=== PATIENT | male | born 1950 | race Hispanic/Latino ===

== ENCOUNTER → 2019-05-28 | Day surgery (SDC) | payer MEDICARE ==
--- NOTE | 2019-05-27 11:12 | Diagnostic Imaging Report ---
EXAMINATION: CHEST 2 VIEWS INDICATION: Pre-operative COMPARISON: None FINDINGS: LINES/TUBES:None LUNGS:The lungs are well-inflated. No focal consolidation or pulmonary edema. PLEURA:No pleural effusion or pneumothorax. MEDIASTINUM:The cardiomediastinal silhouette appears normal in size and shape. BONES/SOFT TISSUES:No acute osseous injury. ABDOMEN:No free air under the diaphragm. IMPRESSION: No focal pneumonia or pulmonary edema. Signed by: Dany Ruiz MD on 05/27/2019 11:10 AM
[~2019-05-28] MED LIST: BACITRACIN 50,000 UNIT VIAL ONE; BUPIVACAINE HCL 0.5% INJ 30 ML VIAL INJ ONE; EPHEDRINE SULFATE INJ 50 MG/ML VIAL ONE; FENTANYL CITRATE/PF 100MCG/2 ML INJ ONE; LIDOCAINE HCL 2% LOCAL INJ 5 ML SDV VIAL INJ ONE; METFORMIN HCL500 MG PO; NEOSTIGMINE 1 MG/ML 10ML VIAL ONE; ONDANSETRON HCL INJ 2MG/ML 2ML 2 MG/ML VIAL ONE; PROPOFOL IV EMULSION 10 MG/ML 20 ML VIAL ONE; SEVOFLURANE INHAL SOLN 250 ML PEN BTL ONE
--- OUTSIDE RECORDS SUMMARY | 2019-05-28 07:32 | XMS REPORT | Encounter Summary ---
Author Organization Unknown Address [address] [place] [address] Phone [phone] Care Team Providers Care Human Resources Partner Name Role Phone Dr. Marcial Live 3 [phone] Marcial Live Jr, MD 3 [phone] Reason for Visit fatigue; Bilateral joint problem(s); hyperlipidemia; Left low back pain; Annual Alcohol Misuse Screening; Advance Care Plan; diabetes Instructions 1. Type 2 diabetes mellitus metformin ER 500 mg tablet,extended release 24 hr Tresiba FlexTouch U-100 insulin 100 unit/mL (3 mL) subcutaneous pen glucose, fingerstick, blood 2. Mixed hyperlipidemia atorvastatin 10 mg tablet 3. HMG COA reductase inhibitor adverse reaction 4. Malaise and fatigue testosterone, total, serum 5. Osteoarthritis of hip XR, hip, bilateral, 2 view 6. Alcohol consumption screening learning about alcohol misuse 7. Advance directive discussed with patient advance care planning: care instructions Discussion Note: None recorded. Plan of Care Patient Instructions Patient Instructions on Filing Advance Directives Be sure that you have easy access to your paperwork for your medical power of user support analyst and advanced directives. Be sure that the designated person as well as important family members have copies of those forms as well. Please have contact information of your designee readily available. In the event of hospitalization, please bring those important documents with you for reference. Reminders Provider Appointments Est Patient 12/12/2018 1:30PM Marcial Live Jr, MD Lab Glucose, Fingerstick, Blood 09/12/2018 [facility] ([facility] [place] Testosterone, Total, Serum 09/12/2018 [facility] Laboratory Referral None recorded. Procedures None recorded. Surgeries None recorded. Imaging XR, Hip, Bilateral, 2 View 09/12/2018 [facility] Medications Name Start Date atorvastatin 10 mg tablet Take 0.5 tablets every day by oral route for 90 days. BD Ultra-Fine Jayashree Pen Needle 32 gauge x 5/32" cyclobenzaprine 10 mg tablet Take 1 tablet 3 times a day by oral route as needed for 10 days. Ecotrin Low Strength 81 mg tablet,enteric coated Take 1 tablet every day by oral route for 90 days. hydrocortisone 2.5 % topical cream with perineal applicator APPLY A THIN LAYER TO THE AFFECTED AREA(S) BY TOPICAL ROUTE 2-4 TIMESDAILY metformin ER 500 mg tablet,extended release 24 hr Take 1 tablet every day by oral route. OneTouch Verio strips Take 1 strip twice a day by miscell. route. tamsulosin 0.4 mg capsule Take 1 capsule every day by oral route for 90 days. Tresiba FlexTouch U-100 insulin 100 unit/mL (3 mL) subcutaneous pen Inject 30 units every day by subcutaneous route for 90 days. Medications Administered None recorded. Vitals Height Weight BMI Blood Pressure 5 ft 9 in 222 lbs 32.8 kg/m2 Lab Results Date Name Specimen Result Interpretation Description Value Range Status Address Glucose, Fingerstick, Blood Blood Glucose: mg/dl 99 [facility] ([facility]) [facility]obby: [address] [facility] [address] Allergies Code Code System Name Reaction Severity Status Onset NKDA Problems Name Status Onset Date Source Urge Incontinence of Urine Active 06/30/2015 Lower Urinary Tract Symptoms Due to Benign Prostatic Hypertrophy Active 06/30/2015 Carpal Tunnel Syndrome Active 10/23/2017 Type 2 Diabetes Mellitus Active 10/25/2017 Mixed Hyperlipidemia Active 10/26/2017 Procedures Date Name Performed by 03/20/2015 Carpal Tunnel Surgery Information not available Colonoscopy & Polypectomy Information not available 09/12/2018 XR, Hip, Bilateral, 2 View [facility] [address] [place] [address] (Work Place) Vaccine List Vaccine Type influenza, high dose seasonal 01/04/20180.5 mL influenza, injectable, quadrivalent 06/30/2015 03/30/20160.5 mL Social History Smoking Status Former Smoker (1 PPW) Past Encounters 09/12/2018 Type 2 Diabetes Mellitus; Mixed Hyperlipidemia; HMG COA Reductase Inhibitor Adverse Reaction; Malaise and Fatigue; Osteoarthritis of Hip; Alcohol Consumption Screening; Advance Directive Discussed with Patient Marcial Live Jr, MD: [address] [facility], [place] [address], Ph. History of Present Illness Diabetes F/U Reported By: Patient HPI: Labs: last A1C result: 7.1. Context: no side effects from medications. Associated Symptoms: no dizziness, no sweats, no headaches, no confusion, no increased thirst, no increased appetite, no increased urination, no blurred vision, no numbness of feet Notes: Endorses medication compliance.
Hypertension Reported By: Patient HPI: Severity: mild. Onset/Timing: gradual onset. Alleviating Factors: relieved with rest, medication. Self Care: not under emotional stress, blood pressure goal: 130/80. Associated Symptoms: no shortness of breath, no fatigue, no decline in exercise capacity Hyperlipidemia Reported By: Patient HPI: Type of hyperlipidemia: combined, hypercholesterolemia, hypertriglyceridemia. Duration: chronic. Current Therapy: currently taking: atprvastatin, last LDL level: 72 date: 72, last triglyceride level: 123 date: 123. Complications: no coronary artery disease. Risk Factors: diabetes, hypertension, low HDL level, high lipoprotein(a) level Musculoskeletal Pain Reported By: Patient HPI: Location: pain is not radiating, bilateral hip. Quality: dull. Severity: worsening. Duration: present <1 month. Timing: constant. Alleviating factors: rest. Aggravating factors: movement/positioning. Associated Symptoms: no fever, no weak limbs, no tingling, no numbness of the legs/feet Note:I'd like to talk about what is ahead with your illness and do some thinking in advance about what is important to you so I can make sure we provide you with the care you want-is that okay? {{Yes*|No}}

Patient presents for routine medication refill . Currently without new complaint. Review of Systems Comprehensive General Adult ROS, Comprehensive Adult Problem ROS, Diabetes F/U ROS Reported By: Patient Constitutional: Constitutional: no fever, no significant weight gain, no significant weight loss, no exercise intolerance Eyes: Eyes: no vision change Cardiovascular: Cardiovascular: no chest pain, no shortness of breath when walking, no palpitations, no lightheadedness, no SOB Respiratory: Respiratory: no cough, no wheezing, no shortness of breath Gastrointestinal: Gastrointestinal: no abdominal pain, no nausea, no vomiting, no constipation, normal appetite, no diarrhea Genitourinary: Genitourinary: no difficulty urinating, no increased frequency Musculoskeletal: Musculoskeletal: no muscle weakness, no arthralgias/joint pain, no soft tissue swelling, no joint swelling, muscle aches, myalgia Integumentary: Skin: no rashes, no laceration, no redness, no skin lesions, no swelling Neurologic: Neurologic: no weakness, no numbness, no dizziness. Neuro: no tingling Endocrine: Endocrine: no fatigue Hematologic/Lymphatic: Hematologic/Lymphatic no bruising Constitutional: Constitutional: no significant weight change. Extremities: no ulcers Physical Exam Musculoskeletal and Joint Exam, Cardiology Exam, Diabetes, Diabetic Foot Exam, Low Back Pain Reported By: Patient Musculoskeletal System: Musculoskeletal System normal range of motion in all peripheral joints. Right Hip: trochanteric bursa pain, tenderness, pain on palpation. Left Hip: trochanteric bursa pain, tenderness, pain on palpation Constitutional: General Appearance: well-nourished, well-developed, appears stated age. Level of Distress: comfortable Lungs: Respiratory Effort: unlabored. Chest Exam: no chest wall tenderness. Auscultation: clear, no wheezing, no rales, no rhonchi Cardiovascular: Rate And Rhythm: regular. Heart Sounds: normal S1, physiologically split S2, no rub, no gallop, no click. Systolic Murmur: not heard. Diastolic Murmur: not heard. Extremities: no cyanosis, no edema, no peripheral signs of emboli Peripheral Pulses: Pulses: full and equal in all extremities except if noted Skin: Inspection and Palpation: warm and dry
--- OUTSIDE RECORDS SUMMARY | 2019-05-28 07:32 | XMS REPORT | Encounter Summary ---
Author Organization Unknown Address [address] [place] [address] Phone [phone] Care Team Providers Care Crepe Sole Scourer Name Role Phone Dr. Marcial Live 3 [phone] Marcial Live Jr, MD 3 [phone] Reason for Visit hyperlipidemia; Left foot problem; diabetes Instructions 1. Puncture wound of foot ceftriaxone 1 gram solution for injection Augmentin 875 mg-125 mg tablet 2. Type 2 diabetes mellitus glucose, fingerstick, blood 3. Mixed hyperlipidemia 4. Vaccine refused by patient Discussion Note: None recorded. Patient educational handouts: No information available. Plan of Care Reminders Provider Appointments Est Patient 02/20/2019 2:15PM Marcial Live Jr, MD Lab Glucose, Fingerstick, Blood 01/10/2019 [facility] Referral None recorded. Procedures None recorded. Surgeries None recorded. Imaging None recorded. Medications Name Start Date atorvastatin 10 mg tablet Take 1 tablet every day by oral route for 90 days. Augmentin 875 mg-125 mg tablet Take 1 tablet every 12 hours by oral route with meals for 7 days. BD Ultra-Fine Jayashree Pen Needle 32 gauge x 5/32" diclofenac sodium 75 mg tablet,delayed release Take 1 tablet twice a day by oral route for 15 days. Ecotrin Low Strength 81 mg tablet,enteric coated Take 1 tablet every day by oral route for 90 days. fenofibrate 160 mg tablet Take 1 tablet every day by oral route. metformin ER 500 mg tablet,extended release 24 hr Take 1 tablet every day by oral route. OneTouch Verio strips Take 1 strip twice a day by miscell. route. sildenafil (antihypertensive) 20 mg tablet Take po: 3 to 5 tablets one hour prior to sexual activity; maximun 5 tablets per 24 hours tamsulosin 0.4 mg capsule Take 1 capsule every day by oral route for 90 days. Tresiba FlexTouch U-100 insulin 100 unit/mL (3 mL) subcutaneous pen Inject 30 units every day by subcutaneous route for 90 days. Medications Administered None recorded. Vitals Height Weight BMI Blood Pressure 5 ft 9 in 222.6 lbs 32.9 kg/m2 126/84 mm[Hg] Results Lab Results Date Name Specimen Result Interpretation Description Value Range Status Address 01/01/2019 Glucose, Fingerstick, Blood Blood Glucose: mg/dl 135 [facility]: [address] [address], [place] 12/27/2018 Culture, Aerobic + Anaerobic Culture, Anaerobic Bacteria W/gram Stain [facility]: [address] [address], [place] Culture, Aerobic Bacteria see note [facility]: [address] [facility] [address], [place] 12/24/2018 Glucose, Fingerstick, Blood Blood Glucose: mg/dl 90 [facility]: [address] Glucose, Fingerstick, Blood Blood Glucose: mg/dl 108 [facility]: [address] Allergies Code Code System Name Reaction Severity Status Onset NKDA Problems Name Status Onset Date Source Urge Incontinence of Urine Active 06/30/2015 Lower Urinary Tract Symptoms Due to Benign Prostatic Hypertrophy Active 06/30/2015 Carpal Tunnel Syndrome Active 10/23/2017 Type 2 Diabetes Mellitus Active 10/25/2017 Mixed Hyperlipidemia Active 10/26/2017 Diabetic on Insulin Active 11/21/2018 Procedures Date Name Performed by 03/20/2015 Carpal Tunnel Surgery Information not available 12/27/2018 CT, Head, W/o Contrast [facility] [address] [place] [address] (Work [address]) 01/01/2019 XR, Foot, 2 View [facility] [address] [place] [address] (Work Place) Vaccine List Vaccine Type influenza, high dose seasonal 01/04/20180.5 mL 11/21/20180.5 mL influenza, injectable, quadrivalent 06/30/2015 03/30/20160.5 mL Tdap 11/21/20180.5 mL Social History Tobacco Smoking Status Former Smoker (1 PPW) Past Encounters 01/10/2019 Puncture Wound of Foot; Type 2 Diabetes Mellitus; Mixed Hyperlipidemia; Vaccine Refused by Patient Marcial Live Jr, MD: [address] [address], Ph. 01/01/2019 Type 2 Diabetes Mellitus; Puncture Wound of Foot Marcial Live Jr, MD: [address], [place] [address], Ph. 12/27/2018 Type 2 Diabetes Mellitus; Mixed Hyperlipidemia; Puncture Wound of Foot; Headache Marcial Live Jr, MD: [address], [place] [address], Ph. 12/24/2018 Type 2 Diabetes Mellitus; Mixed Hyperlipidemia; Puncture Wound of Foot; Osteoarthritis of Hip Marcial Live Jr, MD: [address], [place] [address], Ph. History of Present Illness Hypertension Reported By: Patient HPI: Severity: mild. Onset/Timing: gradual onset. Alleviating Factors: relieved with rest, medication. Self Care: not under emotional stress, blood pressure goal: 130/80. Associated Symptoms: no shortness of breath, no fatigue, no decline in exercise capacity Diabetes F/U Reported By: Patient HPI: Labs: last A1C result: 7.5. Context: no side effects from medications. Associated Symptoms: no dizziness, no sweats, no headaches, no confusion, no increased thirst, no increased appetite, no increased urination, no blurred vision, no numbness of feet Notes: Endorses medication compliance. Hyperlipidemia Reported By: Patient HPI: Type of hyperlipidemia: combined, hypercholesterolemia, hypertriglyceridemia. Duration: chronic. Current Therapy: currently taking:atorvastatin, last LDL level: not calculated date: not calculated, last triglyceride level: 463 date: 463. Complications: no coronary artery disease Review of Systems Comprehensive General Adult ROS, Diabetes F/U ROS Reported By: Patient Constitutional: Constitutional: no significant weight gain, no significant weight loss Cardiovascular: Cardiovascular: no chest pain, no shortness of breath when walking Respiratory: Respiratory: no cough, no wheezing, no shortness of breath Integumentary: Skin: no rashes, laceration Endocrine: Endocrine: no fatigue Physical Exam Musculoskeletal and Joint Exam, Neurology Exam, Cardiology Exam, Diabetes, Diabetic Foot Exam Reported By: Patient Musculoskeletal System: Musculoskeletal System normal range of motion in all peripheral joints. Left Foot: pain on palpation Constitutional: Weight: well-nourished. Ambulation: ambulates independently Head: Size/Trauma: normocephalic Mental Status: Orientation oriented to person, oriented to place, oriented to time. Mood/Affect: appropriate mood, appropriate affect. Language: has spontaneous speech. Memory: recent memory intact, remote memory intact. Fund of Knowledge: current events, past history Foot Exam:: Right Foot: right foot toes were examined. Left Foot: left foot toes were examined
--- OUTSIDE RECORDS SUMMARY | 2019-05-28 07:32 | XMS REPORT | Encounter Summary ---
Author Organization Unknown Address [address] [place] [address] Phone [phone] Care Team Providers Care Pediatric Licensed Practical Nurse Name Role Phone Dr. Marcial Live 3 [phone] Marcial Live Jr, MD 3 [phone] Reason for Visit Left foot problem; headaches Instructions 1. Type 2 diabetes mellitus glucose, fingerstick, blood 2. Mixed hyperlipidemia 3. Puncture wound of foot culture, aerobic + anaerobic 4. Headache CT, head, w/o contrast - *Please call the patient and schedule* Discussion Note: None recorded. Patient educational handouts: No information available. Plan of Care Reminders Provider Appointments Est Patient 01/01/2019 10:00AM Marcial Live Jr, MD Est Patient 02/20/2019 2:15PM Marcial Live Jr, MD Lab Glucose, Fingerstick, Blood 12/27/2018 [facility] Culture, Aerobic + Anaerobic 12/27/2018 [facility] Laboratory Referral None recorded. Procedures None recorded. Surgeries None recorded. Imaging CT, Head, W/o Contrast 12/27/2018 [facility]iology Medications Name Start Date amoxicillin 875 mg-potassium clavulanate 125 mg tablet Take 1 tablet every 12 hours by oral route for 7 days. atorvastatin 10 mg tablet Take 1 tablet [...] ft 9 in 222 lbs 32.8 kg/m2 128/80 mm[Hg] Results Lab Results Date Name Specimen Result Interpretation Description Value Range Status Address 12/24/2018 Glucose, Fingerstick, Blood Blood Glucose: mg/dl 90 [facility]: [address] Glucose, Fingerstick, Blood Blood Glucose: mg/dl 108 [facility]: [address] Allergies Code Code System Name Reaction [...] not available 12/27/2018 CT, Head, W/o Contrast [facility] [address] [place] [address] (Work [address]) Vaccine List Vaccine Type influenza, high dose seasonal 01/04/20180.5 mL 11/21/20180.5 mL influenza, injectable, quadrivalent 06/30/2015 03/30/20160.5 mL Tdap 11/21/20180.5 mL Social History Tobacco Smoking Status Former Smoker (1 PPW) Past Encounters 12/27/2018 Type 2 Diabetes Mellitus; Mixed Hyperlipidemia; Puncture Wound of Foot; Headache Marcial Live Jr, MD: [address] [address], [place]. 12/24/2018 Type 2 Diabetes Mellitus; Mixed Hyperlipidemia; Puncture Wound of Foot; Osteoarthritis of Hip Marcial Live Jr, MD: [address] [address], Ph. History of Present Illness Hypertension Reported [...] hypertriglyceridemia. Duration: chronic. Current Therapy: currently taking: atorvastatin,fenofibrate. Complications: no coronary artery disease Note:{{Yes|No}} Review of Systems Comprehensive General Adult ROS, [...]
--- OUTSIDE RECORDS SUMMARY | 2019-05-28 07:32 | XMS REPORT | Encounter Summary ---
Author Organization Unknown Address [address] [place] [address] Phone [phone] Care Team Providers Care Linen Checker Name Role Phone Dr. Marcial Live 3 [phone] Marcial Live Jr, MD 3 [phone] Reason for Visit hyperlipidemia; diabetes Instructions 1. Type 2 diabetes mellitus glucose, fingerstick, blood HbA1c (hemoglobin A1c), blood microalbumin:creatinine ratio, urine metformin ER 500 mg tablet,extended release 24 hr OneTouch Verio strips Tresiba FlexTouch U-100 insulin 100 unit/mL (3 mL) subcutaneous pen 2. Mixed hyperlipidemia atorvastatin 10 mg tablet 3. Hypercalcemia CMP, serum or plasma 4. Influenza vaccination declined 5. Screening for cardiovascular system disease 6. Lower urinary tract symptoms due to benign prostatic hypertrophy tamsulosin 0.4 mg capsule Discussion Note: None recorded. Patient educational handouts: No information available. Plan of Care Reminders Provider Appointments Return to Office on or around 09/13/2018 Marcial Live Jr, MD Lab Glucose, Fingerstick, Blood 06/13/2018 [facility] ([facility] HbA1C (Hemoglobin a1C), Blood 06/13/2018 [facility] Laboratory Microalbumin:creatinine Ratio, Urine 06/13/2018 [facility] CMP, Serum or Plasma 06/13/2018 [facility] Referral None recorded. Procedures None [...] BMI Blood Pressure 5 ft 9 in 216 lbs 31.9 kg/m2 130/80 mm[Hg] Lab Results None recorded. Allergies Code Code System Name Reaction Severity Status Onset NKDA Problems Name Status Onset Date Source Urge Incontinence of Urine Active 06/30/2015 Lower Urinary Tract Symptoms Due to Benign Prostatic Hypertrophy Active 06/30/2015 Carpal Tunnel Syndrome Active 10/23/2017 Type 2 Diabetes Mellitus Active 10/25/2017 Mixed Hyperlipidemia Active 10/26/2017 Procedures Date Name Performed by 03/20/2017 Colonoscopy & Polypectomy Information not available 03/20/2015 Carpal Tunnel Surgery Information not available Vaccine List Vaccine Type influenza, high dose seasonal 01/04/20180.5 mL influenza, injectable, quadrivalent 06/30/2015 03/30/20160.5 mL Social History Smoking Status Former Smoker (1 PPW) Past Encounters 06/13/2018 Type 2 Diabetes Mellitus; Mixed Hyperlipidemia; Hypercalcemia; Influenza Vaccination Declined; Screening for Cardiovascular System Disease; Lower Urinary Tract Symptoms Due to Benign Prostatic Hypertrophy Marcial Live Jr, MD: [address] [facility], [address], [place] [address], Ph. History of Present Illness Hypertension Reported By: Patient HPI: Severity: mild. Onset/Timing: gradual onset. Alleviating Factors: relieved with rest, medication. Self Care: not under emotional stress, blood pressure goal: 130/80. Associated Symptoms: no shortness of breath, no fatigue, no decline in exercise capacity Diabetes F/U Reported By: Patient HPI: Labs: last A1C result: 7.6. Context: no side effects from medications. Associated Symptoms: no dizziness, no sweats, no headaches, no confusion, no increased thirst, no increased appetite, no increased urination, no blurred vision, no numbness of feet Notes: Endorses medication compliance.

Endorses medication compliance, appropriate diabetic diet.
Hyperlipidemia Reported By: Patient HPI: Type of hyperlipidemia: combined, hypercholesterolemia, hypertriglyceridemia. Duration: chronic. Current Therapy: currently taking: atprvastatin, last LDL level: 72 date: 72, last triglyceride level: 123 date: 123. Complications: no coronary artery disease. Risk Factors: diabetes, hypertension, low HDL level, high lipoprotein(a) level Note:Patient presents for routine medication refill . Currently without new complaint. Review of Systems Comprehensive General Adult ROS, Diabetes F/U ROS Reported By: Patient Constitutional: Constitutional: no significant weight gain, no significant weight loss Cardiovascular: Cardiovascular: no chest pain, no shortness of breath when walking Respiratory: Respiratory: no cough, no wheezing, no shortness of breath Genitourinary: Genitourinary: increased urinary frequency, incomplete emptying Endocrine: Endocrine: no fatigue Physical Exam Cardiology Exam, Diabetes, Diabetic Foot Exam Reported By: Patient Constitutional: General Appearance: well-nourished, well-developed, appears stated age. Level of Distress: comfortable Psychiatric: Mental Status: alert, normal affect, normal mood, no diffuse anxiety, no paranoid ideations. Orientation: oriented to time, place, and person, to time, to place, to person. Insight: good judgment, good insight. Memory: recent memory normal, remote memory normal Lungs: Respiratory Effort: unlabored. Chest Exam: no [...]
--- OUTSIDE RECORDS SUMMARY | 2019-05-28 07:32 | XMS REPORT | Encounter Summary ---
Author Organization Unknown Address [address] [place] [address] Phone [phone] Care Team Providers Care Sales Recruiter Name Role Phone Dr. Marcial Live 3 [phone] Marcial Live Jr, MD 3 [phone] Reason for Visit Advance Care Plan; AWV Annual Wellness Visit Male (VFP); puncture wound Instructions 1. Adult health examination 2. Advance directive discussed with patient advance care planning: care instructions 3. Depression screening 4. Screening for malignant neoplasm of colon fecal occult blood, stool 5. Screening for malignant neoplasm of prostate PSA, serum or plasma 6. Alcohol consumption screening learning about alcohol misuse 7. Penetrating wound 8. Type 2 diabetes mellitus glucose, fingerstick, blood HbA1c (hemoglobin A1c), blood microalbumin/creatinine, ratio, urine OneTouch Verio strips 9. Diabetic on insulin 10. Mixed hyperlipidemia lipid panel, serum CMP, serum or plasma 11. Obesity learning about healthy weight 12. Malaise and fatigue CBC w/ auto diff TSH, serum or plasma urinalysis, dipstick testosterone, total, serum 13. Lower urinary tract symptoms due to benign prostatic hypertrophy tamsulosin 0.4 mg capsule 14. Primary erectile dysfunction sildenafil (antihypertensive) 20 mg tablet 15. Immunization refused 16. Influenza vaccination Fluzone High-Dose 2019-20 (PF) 180 mcg/0.5 mL intramuscular syringe 17. Immunization Adacel (Tdap Adolesn/Adult)(PF)2 Lf-(2.5-5-3-5)-5 Lf/0.5 mL IM syringe Discussion Note: None recorded. Plan of Care Patient Instructions It was good to see you in the office today for your Medicare Annual Wellness Visit. You have been provided some information on healthy nutrition, including a diet rich in fruits and vegetables, minimizing simple carbohydrates, salt, and saturated fats. I want to encourage regular cardiovascular exercise such as walking at least 30 minutes daily, 5 times per week. Please remember to schedule any preventive health measures that we talked about today. You have also been provided education on fall prevention and community- based lifestyle interventions to help reduce health risks and promote healthy living in your Annual Wellness folder. Screening Recommendations 1. Vaccines Pneumonia: Recommended today Influenza: This Fall 2. Colorectal Cancer Screening: No further screening necessary at this time 3. Annual Prostate Screening 4. Annual Depression Screening 5. Annual Alcohol Screening 6. Annual Fall Risk Screening 7. Annual Health Risk Assessment Patient Instructions on Filing Advance Directives Be sure that you have easy access to your paperwork for your medical power of collections attorney and advanced directives. Be sure that the designated person as well as important family members have copies of those forms as well. Please have contact information of your designee readily available. In the event of hospitalization, please bring those important documents with you for reference. Reminders Provider Appointments Est Patient 12/12/2018 1:30PM Marcial Live Jr, MD Lab Glucose, Fingerstick, Blood 11/21/2018 [facility]) Hob HbA1C (Hemoglobin a1C), Blood 11/21/2018 [facility] Microalbumin/creatinine, Ratio, Urine 11/21/2018 [facility] Lipid Panel, Serum 11/21/2018 [facility] CMP, Serum or Plasma 11/21/2018 [facility] CBC W/ Auto Diff 11/21/2018 [facility] TSH, Serum or Plasma 11/21/2018 [facility] Urinalysis, Dipstick 11/21/2018 [facility] Fecal Occult Blood, Stool 11/21/2018 [facility] PSA, Serum or Plasma 11/21/2018 [facility] Testosterone, Total, Serum 11/21/2018 [facility] Referral None recorded. Procedures None recorded. Surgeries None recorded. Imaging None recorded. Medications Name Start Date atorvastatin 10 mg tablet Take 0.5 tablets every day by oral route for 90 days. BD Ultra-Fine Jayashree Pen Needle 32 gauge x 5/32" Ecotrin Low Strength 81 mg tablet,enteric coated Take 1 tablet every day by oral route for 90 days. metformin ER 500 mg tablet,extended release 24 [...] BMI Blood Pressure 5 ft 9 in 225 lbs 33.2 kg/m2 126/78 mm[Hg] Lab Results None recorded. Allergies Code [...] Status Former Smoker (1 PPW) Past Encounters 11/21/2018 Adult Health Examination; Advance Directive Discussed with Patient; Depression Screening; Screening for Malignant Neoplasm of Colon; Screening for Malignant Neoplasm of Prostate; Alcohol Consumption Screening; Penetrating Wound; Type 2 Diabetes Mellitus; Diabetic on Insulin; Mixed Hyperlipidemia; Obesity; Malaise and Fatigue; Lower Urinary Tract Symptoms Due to Benign Prostatic Hypertrophy; Primary Erectile Dysfunction; Immunization Refused; Influenza Vaccination; Immunization Marcial Live Jr, MD: [address] [facility], [address], [place] [address], Ph. History of Present Illness Mini Cog Reported By: Patient Functional Ability: Personal/Social/ Draw a clock and write in the numbers in the correct place, and set the time to 10 minutes after 11 o'clock was completed correctly? Yes, 3 word recall: Your nurse or doctor will ask you to remember 3 words. In 5 minutes, they will ask you to repeat them. Patient recalled 3 words Opioid Use Assessment Reported By: Patient Opioid Use Assessment:: Current Use of Opioids : no use of opioids (no further questions required) Note:I'd like to talk about what is ahead with your illness and do some thinking in advance about what is important to you so I can make sure we provide you with the care you want-is that okay? {{Yes*|No}} Review of Systems Comprehensive General Adult ROS Reported By: Patient Constitutional: Constitutional: no significant weight gain, no significant weight loss Cardiovascular: Cardiovascular: no chest pain, no shortness of breath when walking Respiratory: Respiratory: no cough, no wheezing, no shortness of breath Integumentary: Skin: no rashes, laceration Endocrine: Endocrine: no fatigue Physical Exam Neurology Exam Reported By: Patient Constitutional: Weight: well-nourished. Ambulation: ambulates independently Head: Size/Trauma: normocephalic Mental Status: Orientation oriented to person, oriented to place, oriented to time. Mood/Affect: appropriate mood, appropriate affect. Language: has spontaneous speech. Memory: recent memory intact, remote memory intact. Fund of Knowledge: current events, past history
--- OUTSIDE RECORDS SUMMARY | 2019-05-28 07:32 | XMS REPORT ---
Author Author [facility] Address Unknown Phone Unavailable Care Team Providers Care Custodial Supervisor Name Role Phone NIXON CHAVZE Unavailable Unavailable Problems This patient has no known problems. Allergies, Adverse Reactions, Alerts This patient has no known allergies or adverse reactions. Medications This patient has no known medications. Encounters Start Date/Time End Date/Time Encounter Type Admission Type Attending Clinicians Care Facility Care Department Encounter ID 2019-05-07 14:23:29 Outpatient [id number] 2019-01-23 14:00:00 2019-01-23 14:00:00 Outpatient [id number] Results Test Description Test Time Test Comments Text Results Atomic Results Result Comments CHEST 2 VIEWS 2019-05-27 11:09:00 [place] [address] Patient Name: KIMBERLY FLEMING JR MR #: [id number] : 1950 Age/Sex: 68/M Req #: [id number] Adm Physician: Ordered by: NIXON CHAVEZ DP Report #: [id number] Location: OR Room/Bed: Procedure: [id number] DX/CHEST 2 VIEWS Exam Date: Exam Time: REPORT STATUS: Signed EXAMINATION: CHEST 2 VIEWS INDICATION: Pre-operative COMPARISON: None FINDINGS: LINES/TUBES:None LUNGS:The lungs are well- inflated. No focal consolidation or pulmonary edema. PLEURA:No pleural effusion or pneumothorax. MEDIASTINUM:The cardiomediastinal silhouette appears normal in size and shape. BONES/SOFT TISSUES:No acute osseous injury. ABDOMEN:No free air under the diaphragm. IMPRESSION: No focal pneumonia or pulmonary edema. Signed by: Nga Ruiz MD on 05/27/2019 11:10 AM Dictated By: NGA RUIZ MD 1110 Transcribed By: AISHA on 05/27/19 1110 COPY TO: NIXON CHAVEZ DPM
--- OUTSIDE RECORDS SUMMARY | 2019-05-28 07:32 | XMS REPORT | Encounter Summary ---
Author Organization Unknown Address [address] [place] [address] Phone [phone] Care Team Providers Care Social Media Campaign Manager Name Role Phone Dr. Marcial Live 3 [phone] Marcial Live Jr, MD 3 [phone] Reason for Visit hyperlipidemia; other - see typed reason; diabetes Instructions 1. Type 2 diabetes mellitus glucose, fingerstick, blood 2. Mixed hyperlipidemia 3. Puncture wound of foot Augmentin 875 mg-125 mg tablet 4. Osteoarthritis of hip diclofenac sodium 75 mg tablet,delayed release Discussion Note: None recorded. Patient educational handouts: No information available. Plan of Care Reminders Provider Appointments Return to Office on or around 12/28/2018 Marcial Live Jr, MD Est Patient 02/20/2019 2:15PM Marcial Live Jr, MD Lab Glucose, Fingerstick, Blood 12/24/2018 [facility] Referral None recorded. Procedures None recorded. Surgeries None recorded. Imaging None recorded. Medications Name Start Date atorvastatin 10 mg tablet Take 1 tablet every day by oral route for 90 days. Augmentin 875 mg-125 mg tablet Take 1 tablet every 12 hours by oral route for 7 days. BD Ultra-Fine Jayashree Pen [...] BMI Blood Pressure 5 ft 9 in 224.6 lbs 33.2 kg/m2 124/76 mm[Hg] Results Lab Results None recorded. Allergies Code Code [...] Status Former Smoker (1 PPW) Past Encounters 12/24/2018 Type 2 Diabetes Mellitus; Mixed Hyperlipidemia; Puncture Wound of Foot; Osteoarthritis of Hip Marcial Live Jr, MD: [address] [facility], [address], [place] [address], Ph. History of Present Illness Hypertension Reported [...] taking: atorvastatin,fenofibrate. Complications: no coronary artery disease Opioid Use Assessment Reported By: Patient Opioid Use Assessment:: Current Use of Opioids : no use of opioids (no further questions required) Note:{{Yes|No}} Review of Systems Comprehensive General Adult [...] motion in all peripheral joints. Right Hip: tenderness, pain on palpation. Left Hip: tenderness, pain on palpation. Right Foot: pain on palpation. Left Foot: pain on palpation Constitutional: Weight: [...]
--- OUTSIDE RECORDS SUMMARY | 2019-05-28 07:32 | XMS REPORT | Encounter Summary ---
Author Organization Unknown Address [address] [place] [address] Phone [phone] Care Team Providers Care Regional Vice President Life Sales Name Role Phone Dr. Marcial Live 3 [phone] Marcial Live Jr, MD 3 [phone] Reason for Visit hyperlipidemia; Left foot problem; diabetes Instructions 1. Type 2 diabetes mellitus metformin ER 500 mg tablet,extended release 24 hr glucose, fingerstick, blood 2. Puncture wound of foot XR, foot, 2 view Bactrim DS 800 mg-160 mg tablet Discussion Note: None recorded. Patient educational handouts: No information available. Plan of Care Reminders Provider Appointments Est Patient 02/20/2019 2:15PM Marcial Live Jr, MD Lab Glucose, Fingerstick, Blood 01/01/2019 [facility] Referral None recorded. Procedures None recorded. Surgeries None recorded. Imaging XR, Foot, 2 View 01/01/2019 [facility] Radiology Medications Name Start Date atorvastatin 10 mg tablet Take 1 tablet every day by oral route for 90 days. Bactrim DS 800 mg-160 mg tablet Take 1 tablet every 12 [...] BMI Blood Pressure 5 ft 9 in 223.6 lbs 33 kg/m2 124/80 mm[Hg] Results Lab Results Date Name Specimen Result Interpretation Description Value Range Status Address 12/24/2018 Glucose, Fingerstick, Blood Blood Glucose: mg/dl 90 [facility]: [address] Glucose, Fingerstick, Blood Blood Glucose: mg/dl 108 [facility]: [address] Allergies Code Code System Name Reaction [...] not available 12/27/2018 CT, Head, W/o Contrast [facility] [address] [place], [place] [id number] (Work Place) 01/01/2019 XR, Foot, 2 View [facility] [address] [place], [place] [id number] (Work Place) Vaccine List Vaccine Type influenza, high dose seasonal 01/04/20180.5 mL 11/21/20180.5 mL influenza, injectable, quadrivalent 06/30/2015 03/30/20160.5 mL Tdap 11/21/20180.5 mL Social History Tobacco Smoking Status Former Smoker (1 PPW) Past Encounters 01/01/2019 Type 2 Diabetes Mellitus; Puncture Wound of Foot Marcial Live Jr, MD: [address] [address], Ph. 12/27/2018 Type 2 Diabetes Mellitus; Mixed Hyperlipidemia; Puncture Wound of Foot; Headache Marcial Live Jr, MD: [address] [address], Ph. 12/24/2018 Type 2 Diabetes Mellitus; Mixed Hyperlipidemia; Puncture Wound of Foot; Osteoarthritis of Hip Marcial Live Jr, MD: [address] [facility], [address], [place] [address], Ph. History of Present Illness Hypertension Reported By: Patient HPI: Severity: mild. Onset/Timing: gradual onset. Alleviating Factors: relieved with rest, medication. Self Care: not under emotional stress, blood pressure goal: 130/80. Associated Symptoms: no shortness of breath, no fatigue, no decline in exercise capacity Diabetes F/U Reported By: Patient HPI: Labs: last A1C result: . Context: no side effects from medications. Associated Symptoms: no dizziness, no sweats, no headaches, no confusion, no increased thirst, no increased appetite, no increased urination, no blurred vision, no numbness of feet Notes: Endorses medication compliance. Hyperlipidemia Reported By: Patient HPI: Type of hyperlipidemia: combined, hypercholesterolemia. Duration: chronic. Current Therapy: currently taking:. Complications: no coronary artery disease Review of [...] Musculoskeletal: Musculoskeletal: no muscle weakness, no arthralgias/joint pain Integumentary: Skin: no rashes, no laceration Neurologic: Neurologic: no weakness, no numbness, no dizziness Endocrine: Endocrine: no fatigue Extremities: Extremities: no edema, no ulcers Physical Exam Cardiology Exam, Diabetes, Diabetic Foot [...]
--- OUTSIDE RECORDS SUMMARY | 2019-05-28 07:32 | XMS REPORT | Encounter Summary ---
Author Organization Unknown Address [address] [place] [address] Phone [phone] Care Team Providers Care Rectifying Attendant Name Role Phone Dr. Marcial Live 3 [phone] Marcial Live Jr, MD 3 [phone] Reason for Visit hyperlipidemia; diabetes Instructions 1. Type 2 diabetes mellitus diabetic ophthalmology referral glucose, fingerstick, blood 2. Mixed hyperlipidemia 3. Puncture wound of foot Discussion Note: None recorded. Patient educational handouts: No information available. Plan of Care Reminders Provider Appointments None recorded. Lab Glucose, Fingerstick, Blood 01/18/2019 [facility] Referral Diabetic Ophthalmology Referral 01/18/2019 Roebr Jennings MD Procedures None recorded. Surgeries None recorded. Imaging None recorded. Medications Name Start Date amoxicillin 875 mg-potassium clavulanate 125 mg tablet Take 1 tablet every 12 hours by oral route with meals for 7 days. atorvastatin 10 mg tablet [...] BMI Blood Pressure 5 ft 9 in 226 lbs 33.4 kg/m2 120/72 mm[Hg] Results Lab Results Date Name Specimen Result Interpretation Description Value Range Status Address 01/10/2019 Glucose, Fingerstick, Blood Blood Glucose: mg/dl 107 [facility]: [address] [place] [address], [place] 01/01/2019 Glucose, Fingerstick, Blood Blood Glucose: mg/dl 135 [facility]: [address] [place] [address], [place] 12/27/2018 Culture, Aerobic + Anaerobic Culture, Anaerobic Bacteria W/gram Stain [facility] Laboratory: [address] [place] [address], [place] Culture, Aerobic Bacteria see note [facility] Laboratory: [address] [place] [address], [place] 12/24/2018 Glucose, Fingerstick, Blood Blood Glucose: mg/dl 90 [facility]: [address] [place] [address], [place] Glucose, Fingerstick, Blood Blood Glucose: mg/dl 108 [facility]: [address] Allergies Code Code System Name Reaction Severity Status Onset NKDA Problems Name Status Onset Date Source Urge Incontinence of Urine Active 06/30/2015 Lower Urinary Tract Symptoms Due to Benign Prostatic Hypertrophy Active 06/30/2015 Carpal Tunnel Syndrome Active 10/23/2017 Type 2 Diabetes Mellitus Active 10/25/2017 Mixed Hyperlipidemia Active 10/26/2017 Polymyalgia Active 03/26/2018 Diabetic on Insulin Active 11/21/2018 Procedures Date Name Performed by 03/20/2015 Carpal Tunnel Surgery Information not available 12/27/2018 CT, Head, W/o Contrast [facility] [address] [place] [address] (Work Place) 01/01/2019 XR, Foot, 2 View [facility] [address] [place], [place] [id number] (Work Place) Vaccine List Vaccine Type influenza, high dose seasonal 01/04/20180.5 mL 11/21/20180.5 mL influenza, injectable, quadrivalent 06/30/2015 03/30/20160.5 mL Tdap 11/21/20180.5 mL Social History Tobacco Smoking Status Former Smoker (1 PPW) Past Encounters 01/18/2019 Type 2 Diabetes Mellitus; Mixed Hyperlipidemia; Puncture Wound of Foot Marcial Live Jr, MD: [address] [address], Ph. 01/10/2019 Puncture Wound of Foot; Type 2 Diabetes Mellitus; Mixed Hyperlipidemia; Vaccine Refused by Patient Marcial Live Jr, MD: [address] [facility] [address], [place] [address], Ph. 01/01/2019 Type 2 Diabetes Mellitus; Puncture Wound of Foot Marcial Live Jr, MD: [address] [facility] [address], [place] [address], Ph. 12/27/2018 Type 2 Diabetes Mellitus; Mixed Hyperlipidemia; Puncture Wound of Foot; Headache Marcial Live Jr, MD: [address] [facility] [address], [place] [address], Ph. 12/24/2018 Type 2 Diabetes Mellitus; Mixed Hyperlipidemia; Puncture Wound of Foot; Osteoarthritis of Hip Marcial Live Jr, MD: [address] [facility] [address], [place] [address], Ph. History of Present Illness Hypertension Reported [...] motion in all peripheral joints. Left Foot: no objective synovitis, no tenderness, no warmth, no erythema Constitutional: Weight: well-nourished. Ambulation: ambulates independently Head: Size/Trauma: normocephalic Mental Status: Orientation oriented to person, oriented to place, oriented to time. Mood/Affect: appropriate mood, appropriate affect. Language: has spontaneous speech. Memory: recent memory intact, remote memory intact. Fund of Knowledge: current events, past history, alert, no diffuse anxiety, no paranoid ideations Lungs: Auscultation: clear, no wheezing, no rales, no rhonchi. Respiratory Effort: unlabored. Chest Exam: no chest wall tenderness Heart: Rate And Rhythm: RRR. Heart Sounds: normal S1, physiologically split S2, no rub, no gallop, no click. Systolic Murmur: not heard. Diastolic Murmur: not heard. Extremities: no cyanosis, no edema, no peripheral signs of emboli Constitutional: General Appearance: well-developed, appears stated age. Level of Distress: comfortable Psychiatric: Orientation: oriented to time, place, and person. Insight: good judgment, good insight Peripheral Pulses: Pulses: full and equal in all extremities except if noted Skin: Inspection and Palpation: warm and dry Foot Exam:: Right Foot: right foot toes were examined. Left Foot: left foot toes were examined
--- OUTSIDE RECORDS SUMMARY | 2019-05-28 07:33 | XMS REPORT | Summary of Care ---
Author Author [facility] - [facility] Organization [facility] - Health Address Unknown Phone Unavailable Care Team Providers Care Project Control Officer Name Role Phone Pcp, Patient Does Not Have A PCP Reason for Visit * Reason Comments Notification Encounter Details Care Team Description Date Type Department Mary Alice Hawkins, DPM [address] [place] [address] Notification 04/24/2019 Telephone [facility] Orthopaedic Surgery- [facility] [address] [facility], [address] [place] [address] Allergies No Known Allergiesdocumented as of this encounter (statuses as of 04/25/2019) Medications End Date Status Medication Sig Dispensed Refills Start Date Active naproxen (NAPROSYN) 500 Take 1 Tab by 60 Tab 0 201 mg tabletIndications: mouth 2 (two) 5 Neck pain times daily with meals. Active benzonatate 100 mg Take 1 30 capsule 0 capsule capsule by 8 mouth 3 (three) times daily. 05/14/2019 Active doxycycline monohydrate Take 1 42 capsule 0 100 mg capsule by 0 capsuleIndications: mouth 2 (two) Puncture wound of left times daily foot, initial encounter for 21 days. documented as of this encounter (statuses as of 04/25/2019) Active Problems Not on filedocumented as of this encounter (statuses as of 04/25/2019) Immunizations Name Administration Dates Next Due Influenza High Dose 04/11/2014 documented as of this encounter Social History Date Tobacco Use Types Packs/Day Years Used Former Smoker Cigarettes Drinks/Week oz/Week Comments Alcohol Use socially Yes Sex Assigned at Date Recorded Not on file Industry Job Start Date Occupation Not on file Not on file Not on file Travel End Travel History Travel Start No recent travel history available. documented as of this encounter Last Filed Vital Signs Not on filedocumented in this encounter Plan of Treatment Care Team Description Date Type Specialty 3, [facility] Vas Rm 05/10/2019 Appointment Vascular Sonography Mary Alice Hawkins, DPM [address] [address] 05/13/2019 Office Visit Orthopedic Surgery Health Maintenance Due Date Last Done Comments HEPATITIS C (HCV) SCREEN 1950 HgA1C 1949 EYE EXAM 1958 LDL-C 1958 URINE MICROALBUMIN 1958 DTaP,Tdap,and Td Vaccines 11/20/1959 (1 - Tdap) FOOT EXAM 1966 COLONOSCOPY 1998 Zoster Recombinant 1998 Vaccine (SHINGRIX) (1 of 2) Medicare Wellness Visit 2013 PNEUMOCOCCAL VACCINES 65+ 2013 (1 of 2 - PCV13) CREATININE (SERUM) 04/14/2018 04/14/2017 INFLUENZA VACCINE (#1) 2018 04/11/2014 documented as of this encounter Results Not on filedocumented in this encounter Insurance Type Payer Benefit Subscriber ID Effective Phone Address Plan / Dates Group Medicare Adv PPO AET[employer] - MANAGED MEDICARE AETNA [id number] 2017-P [address] MEDICARE resent [id number] [place] [id number] documented as of this encounter
--- OUTSIDE RECORDS SUMMARY | 2019-05-28 07:33 | XMS REPORT | Summary of Care ---
Author Author [facility] - [facility] Organization [facility] - [facility] Address Unknown Phone Unavailable Care Team Providers Care Upsetter Name Role Phone Pcp, Patient Does Not Have A PCP Reason for Visit * Reason Comments Notification Encounter Details Care Team Description Date Type Department Mary Alice Hawkins, DPM [address] [place] [address] Notification 04/24/2019 Telephone [facility] Orthopaedic Surgery- [facility] [address] [facility], [address] [place] [address] Allergies No Known Allergiesdocumented as [...] Care Team Description Date Type Specialty 3, [facility] Vas Rm 05/10/2019 Appointment Vascular Sonography Mary Alice Hawkins, DPM [address] [place] [address] 05/13/2019 Office Visit Orthopedic Surgery [...] Adv PPO [employer] - MANAGED MEDICARE AETNA [id number] 2017-P [address] MEDICARE resent [id number] [employer] [place] [id number] documented as of this encounter
--- OUTSIDE RECORDS SUMMARY | 2019-05-28 07:33 | XMS REPORT | Summary of Care ---
Author Author [facility] - Health Organization [facility] - Health Address Unknown Phone Unavailable Care Team Providers Care Auctioneer Art Name Role Phone Pcp, Patient Does Not Have A PCP Reason for Referral * Radiology Services (Routine) Referred By Contact Referred To Contact Status Reason Specialty Diagnoses / Procedures Ogunlanhafsa, Mary Alice A, DPM [address] [place] [address] New Request Diagnostic Diagnoses Radiology Left foot pain P rocedures XR FOOT 3+ VW LEFT Reason for Visit * Radiology Services (Routine) Referred By Contact Referred To Contact Status Reason Specialty Diagnoses / Procedures Ogunlana, Mary Alice A, DPM [address] [place] [address] New Request Diagnostic Diagnoses Radiology Left foot pain P rocedures XR FOOT 3+ VW LEFT Encounter Details Care Team Description Date Type Department Wolfgangunlary, Mary Alice A, DPM [address] [place] [address] Arrived 04/23/2019 [facility] Primary Care Encounter [facility] [address] [place] [address] Allergies No Known Allergiesdocumented as of this encounter (statuses as of 04/24/2019) Medications End Date Status Medication Sig Dispensed Refills Start Date Active naproxen (NAPROSYN) 500 Take 1 Tab by 60 Tab 0 mg tabletIndications: mouth 2 (two) 5 Neck [...] as of this encounter (statuses as of 04/24/2019) Active Problems Not on filedocumented as of this encounter (statuses as of 04/24/2019) Immunizations Name Administration Dates Next Due Influenza [...] Treatment Care Team Description Date Type Specialty Mary Alice Hawkins DPM [address], [place] [id number] 3, [facility] Vas Rm 04/24/2019 Appointment Vascular Sonography Mary Alice Hawkins DPM [address] [place], [place] [phone] 05/13/2019 Office Visit Orthopedic Surgery Health Maintenance [...] 2018 04/11/2014 documented as of this encounter Procedures Comments Procedure Name Priority Date/Time Associated Diagnosis XR FOOT 3+ VW LEFT Routine 04/23/2019 Left foot pain 12:58 PM MILITARY SCIENCE TEACHER documented in this encounter Results * XR FOOT 3+ VW LEFT (04/23/2019 12:58 PM MILITARY SCIENCE TEACHER) Specimen Impressions Performed At No acute bony abnormality. PACS/VR/DOSE Soft tissue swelling. Narrative Performed At EXAM: PACS/VR/DOSE XR FOOT 3+ VW LEFT HISTORY: Left foot infection WB. Patient states he stepped on nail 4 months ago. COMPARISON: None. FINDINGS: Forefoot soft tissue swelling is present. Calcaneal enthesophytes are seen. Mild tibiotalar joint space narrowing is seen with osteophytosis. No acute fracture, dislocation or osseous destruction is seen. Procedure Note [facility], Radiant Results Inft User - 04/23/2019 1:24 PM MILITARY SCIENCE TEACHER EXAM: XR FOOT 3+ VW LEFT HISTORY: Left foot infection WB. Patient states he stepped on nail 4 months ago. COMPARISON: None. FINDINGS: Forefoot soft tissue swelling is present. Calcaneal enthesophytes are seen. Mild tibiotalar joint space narrowing is seen with osteophytosis. No acute fracture, dislocation or osseous destruction is seen. IMPRESSION No acute bony abnormality. Soft tissue swelling. Performing Organization Address City/State/Zipcode Phone Number PACS/VR/DOSE documented in this encounter Visit Diagnoses Diagnosis Left foot pain Pain in limb documented in this encounter Insurance Type Payer Benefit Subscriber ID Effective Phone Address Plan / Dates Group Medicare Adv PPO AETNA - MANAGED MEDICARE AETNA [id number] 2017-P [address] MEDICARE resent [id number] [place] [address] documented as of this encounter
--- OUTSIDE RECORDS SUMMARY | 2019-05-28 07:33 | XMS REPORT | Summary of Care ---
Author Author [facility] - Health Organization [facility] - Health Address Unknown Phone Unavailable Care Team Providers Care Artist Blacksmith Name Role Phone Pcp, Patient Does Not Have A PCP Reason for Referral * (TAMIKO) Referred By Contact Referred To Contact Status Reason Specialty Diagnoses / Procedures Ogunlana Mary Alice A, DPM [address] [place], [place] [phone] New Request Vascular Surgery Diagnoses Puncture wound of left foot, initial encounter P rocedures [facility] MULTI LEVEL BY VASCULAR LAB * MRI/CAT Scan (TAMIKO) Referred By Contact Referred To Contact Status Reason Specialty Diagnoses / Procedures Ogunlana, Mary Alice A, DPM [address] [place] [address] New Request Diagnostic Diagnoses Radiology Puncture wound of left foot, initial encounter P rocedures MR FOOT LEFT W WO CONTRAST * Radiology Services (Routine) Referred By Contact Referred To Contact Status Reason Specialty Diagnoses / Procedures Ogunlana, Mary Alice A, DPM [address] [place] [address] New Request Diagnostic Diagnoses Radiology Left foot pain P rocedures XR FOOT 3+ VW LEFT Reason for Visit * Reason Comments New Patient Left foot pain 5 Encounter Details Care Team Description Date Type Department Ogunlana, Mary Alice A, DPM [address] [place] [address] [phone] Puncture wound of left foot, initial encounter (Primary Dx); Left foot pain; Diabetes mellitus due to underlying condition with diabetic neuropathy, without long-term current use of insulin 04/23/2019 [facility] [address] [place] [address] Allergies No Known Allergiesdocumented as of this encounter (statuses as of 04/23/2019) Medications End Date Status Medication Sig Dispensed [...] as of this encounter (statuses as of 04/23/2019) Active Problems Not on filedocumented as of this encounter (statuses as of 04/23/2019) Immunizations Name Administration Dates Next Due Influenza [...] of this encounter Last Filed Vital Signs Reading Time Taken Comments Vital Sign - - Blood Pressure - - Pulse - - Temperature - - Respiratory Rate - - Oxygen Saturation - - Inhaled Oxygen Concentration 106.6 kg (235 lb) 04/23/2019 12:48 PM OUTSIDE SOLAR SALES CONSULTANT Weight - - Height 34.7 04/11/2014 1:37 PM OUTSIDE SOLAR SALES CONSULTANT Body Mass Index documented in this encounter Progress Notes * Mary Alice Hawkins DPM - 04/23/2019 1:15 PM OUTSIDE SOLAR SALES CONSULTANT PCP PODIATRY CLINIC NOTE CC: Left foot infection Eduard Rapp is a 68 year old diabetic male who presents to PCP Podiatry clini c for left foot infection. Patient was diagnosed with diabetes 2 years ago. Leena ent stepped on 2 nails in when doing yard work. The nails penetrated his shoes, but patient was able to remove the nails himself. He presented to PCP the next day and received a tetanus shot. He states X-rays and culture ruled out i nfection. PCP prescribed Bactrim and attempted to drain the wound, but did not p rescribe any creams for the patient to apply at home. He was referred to outside Surgeon Dr. Live at [facility]. Patient states his wound has gotten worse and endorses severe, throbbing pain. Kirstie pena began soaking his foot in water following injury and noticed blood and pus lori in from the site. He is concerned that his wound has not healed in 4 months. He has been applying Neosporin at home and wears a CAM boot on the advice of his PC P. Patient has no other complaints this visit. PAST HISTORIES No past medical history on file. Past Surgical History: Procedure Laterality Date PA LEG/ANKLE SURGERY PROC UNLISTED No family history on file. Social History Socioeconomic History Marital status: Single Spouse name: Not on file Number of children: Not on file Years of education: Not on file Highest education level: Not on file Occupational History Not on file Social Needs Financial resource strain: Not on file Food insecurity: Worry: Not on file Inability: Not on file Transportation needs: Medical: Not on file Non-medical: Not on file Tobacco Use Smoking status: Former Smoker Types: Cigarettes Substance and Sexual Activity Alcohol use: Yes Comment: socially Drug use: Not on file Sexual activity: Never Lifestyle Physical activity: Days per week: Not on file Minutes per session: Not on file Stress: Not on file Relationships Social connections: Talks on phone: Not on file Gets together: Not on file Attends yarsani service: Not on file Active member of club or organization: Not on file Attends meetings of clubs or organizations: Not on file Relationship status: Not on file Intimate partner violence: Fear of current or ex partner: Not on file Emotionally abused: Not on file Physically abused: Not on file Forced sexual activity: Not on file Other Topics Concern Not on file Social History Narrative Not on file MEDS Current Outpatient Medications Medication Sig Dispense Refill benzonatate 100 mg capsule Take 1 capsule by mouth 3 (three) times daily. 30 capsule 0 naproxen (NAPROSYN) 500 mg tablet Take 1 Tab by mouth 2 (two) times daily wi th meals. 60 Tab 0 No current facility-administered medications for this visit. ALLERGIES No Known Allergies PHYSICAL EXAM Wt 106.6 kg (235 lb) | BMI 34.70 kg/m REVIEW OF SYSTEMS Constitutional: no fever, no chills Eyes: no changes in vision ENMT: no sore throat, no congestion Cardiovascular: no chest pain Respiratory: no cough, no shortness of breath Gastrointestinal: no nausea, no vomiting, no diarrhea Genitourinary: no dysuria Integumentary: no itching, no rashes Neurological: no headaches, no seizures Hematologic/lymphatic: no bruising or bleeding tendencies. Psychiatry: (-) depression, (-) anxiety Endocrine: (+) diabetes type II VASC: palpable DP/PT pulses left and right foot DERM: Left foot plantar multiple puncture wound sites x 3 (-) pus, (-) drainage , (-) open wounds, (-) probe to bone, (-) maceration, (-) clinical signs of infe ction NEURO: epicritic sensation diminished to left and right foot MUSK: Unremarkable RADIOLOGY Left foot X-ray, 04/23/2019 Forefoot soft tissue swelling is present. Calcaneal enthesophytes are seen. Mild tibiotalar joint space narrowing is seen with osteophytosis. No acute fracture, dislocation or osseous destruction is seen. IMPRESSION No acute bony abnormality. Soft tissue swelling. Assessment: - Left foot plantar multiple puncture wound sites x3 -Left foot pain - Diabetes type II with neuropathy Plan: - Patient was seen and evaluated in detail - Applied betadine soaked 4x4 gauze, Kerlix, and MADONNA to Left foot. Dressing sheets ge demonstrated to patient in order to be performed daily. Patient voiced unders tanding. - Advised patient to take OTC Aleve or Tylenol to manage pain. Voiced understand ing. - Patient was given script to Engagement Manager today in clinic for post op shoe. Voiced un derstanding. - Ordered and Reviewed Left foot X-ray, 04/23/2019 - Ordered [facility] Labs - Ordered Left foot MRI - Start Doxycycline 100 mg PO for 21 days. Discussed potential side effects incl uding GI upset and photosensitivity. - Diabetic education was explained to patient to evaluate feet daily for any cli nical signs of infection. Voiced understanding. - Patient advised if he notices any clinical signs of infection to please call o ffice immediately or go to ER. Voiced understanding. - Patient to RTC in about 3 weeks with MRI results All questions were answered and no guarantees were given or implied with any typ e of treatment. Scribe's Attestation Carlos Vallejo , am scribing for, and in the presence of, Mary Alice Hawkins DPM who performed the services described here-in. Carlos Nicholson, April 23, 2019, 12:38 PM Physician's Attestation Mary Alice Vallejo DPM, personally performed and/or ordered the services de scribed in this documentation made by the Scribe in my presence, and it is both accurate and complete. All medical record entries made by the Scribe were at my direction and personally dictated by me. I have reviewed the chart and agree t hat the record accurately reflects my personal performance of the history, physi camila exam, assessment and plan. Mary Alice Hawkins DPM Supervisor Computer Operations Podiatry Department of Orthopaedic Surgery & Rehabiliation 04/23/19 2:36 PM IDE SOLAR SALES CONSULTANT documented in this encounter Plan of Treatment Care Team Description Date Type Specialty Mary Alice Hawkins DPM [address] [place], [place] [phone] 04/23/2019 Appointment Radiology Mary Alice Hawkins DPM [address] [place] [address] 3, [facility] Vas Rm 04/24/2019 Appointment Vascular Sonography Mary Alice Hawkins DPM [address] [place] [address] 05/13/2019 Office Visit Orthopedic Surgery Order Schedule Name Type Priority Associated Diagnoses Expected: 04/23/2019, Expires: 10/22/2019 MR FOOT LEFT W WO IMAGING TAMIKO Puncture wound of left CONTRAST foot, initial encounter Health Maintenance Due Date Last Done Comments HEPATITIS C (HCV) SCREEN 1950 DTaP,Tdap,and Td Vaccines 11/20/1959 (1 - Tdap) COLONOSCOPY 1998 Zoster Recombinant 1998 Vaccine (SHINGRIX) (1 of 2) Medicare Wellness Visit 2013 PNEUMOCOCCAL VACCINES 65+ 2013 (1 of 2 - PCV13) INFLUENZA VACCINE (#1) 2018 04/11/2014 documented as of this encounter Results * XR FOOT 3+ VW LEFT (04/23/2019 12:58 PM OUTSIDE SOLAR SALES CONSULTANT) Specimen Impressions Performed At No acute bony [...] Results Inft User - 04/23/2019 1:24 PM OUTSIDE SOLAR SALES CONSULTANT EXAM: XR FOOT 3+ VW LEFT HISTORY: [...] documented in this encounter Visit Diagnoses Diagnosis Puncture wound of left foot, initial encounter - Primary Left foot pain Pain in limb Diabetes mellitus due to underlying condition with diabetic neuropathy, without long-term current use of insulin documented in this encounter Insurance Type Payer Benefit Subscriber ID Effective Phone Address Plan / Dates Group Medicare Adv PPO AETNA - MANAGED MEDICARE AETNA [id number] 2017-P [address] MEDICARE resent [id number] [place] [address] documented as of this encounter"
--- OUTSIDE RECORDS SUMMARY | 2019-05-28 07:33 | XMS REPORT | Summary of Care ---
Author Author [facility] - Health Organization [facility] - Health Address Unknown Phone Unavailable Care Team Providers Care Laborer/Grade Check Name Role Phone Pcp, Patient Does Not Have A PCP Encounter Details Care Team Description Date Type Department Doctor Unassigned, [facility] [address] [place] [address] 04/23/2019 Orders Only [address] [address] Allergies No Known Allergiesdocumented as of this encounter (statuses as of 04/23/2019) Medications End Date Status Medication Sig Dispensed Refills Start Date Active naproxen (NAPROSYN) 500 Take 1 Tab by 60 Tab 0 mg tabletIndications: mouth 2 (two) 5 Neck pain times daily with meals. Active benzonatate 100 mg Take 1 30 capsule 0 capsule capsule by 8 mouth 3 (three) times daily. documented as of this encounter (statuses as [...] Team Description Date Type Specialty Mary Alice Hawkins, DPM [address] [place] [address] [phone] Arrived 04/23/2019 Office Visit Orthopedic Surgery Health Maintenance Due [...] Comments Procedure Name Priority Date/Time Associated Diagnosis ASSIGNMENT OF BENEFITS Routine 04/23/2019 12:42 PM CALL WORKER documented in this encounter Results Not on filedocumented in this encounter Insurance Type Payer Benefit Subscriber ID Effective Phone Address Plan / Dates Group Medicare Adv PPO AETNA - MANAGED MEDICARE AETNA [id number] 2017-P [address] MEDICARE resent [id number] [place] [address] documented as of this encounter
--- OUTSIDE RECORDS SUMMARY | 2019-05-28 07:33 | XMS REPORT | Encounter Summary ---
Author Organization Unknown Address [address] [place] [address] Phone [phone] Care Team Providers Care Therapist'S Assistant Name Role Phone Dr. Marcial Live 3 [phone] Marcial Live Jr, MD 3 [phone] Reason for Visit Lower urinary tract symptoms due to benign prostatic hypertrophy; Mixed hyperlipidemia; Type 2 diabetes mellitus Instructions 1. Type 2 diabetes mellitus glucose, fingerstick, blood Tresiba FlexTouch U-100 insulin 100 unit/mL (3 mL) subcutaneous pen 2. Diabetic on insulin 3. Mixed hyperlipidemia ezetimibe 10 mg tablet 4. Lower urinary tract symptoms due to benign prostatic hypertrophy 5. Urge incontinence of urine 6. Noncompliance with medication regimen 7. Diabetic foot ulcer Bactrim DS 800 mg-160 mg tablet XR, foot, 3 or more view culture, aerobic + anaerobic Discussion Note: None recorded. Patient educational handouts: No information available. Plan of Care Reminders Provider Appointments None recorded. Lab Glucose, Fingerstick, Blood 04/08/2019 [facility] Culture, Aerobic + Anaerobic 04/08/2019 [facility] Laboratory Referral None recorded. Procedures None recorded. Surgeries None recorded. Imaging XR, Foot, 3 or More View 04/08/2019 [facility] Radiology Medications Name Start Date Bactrim DS 800 mg-160 mg tablet Take 1 tablet every 12 hours by oral route for 7 days. Ecotrin Low Strength 81 mg tablet,enteric coated Take 1 tablet every day by oral route for 90 days. ezetimibe 10 mg tablet Take 1 tablet every day by oral route for 90 days. fenofibrate 160 mg tablet Take 1 tablet every day by oral route. metformin ER 500 mg tablet,extended release 24 hr Take 1 tablet every day by oral route. OneTouch Verio strips Take 1 strip twice a day by miscell. route. Tresiba FlexTouch U-100 insulin 100 unit/mL (3 mL) subcutaneous pen Inject 30 units every day by subcutaneous route for 90 days. For every day use. Medications Administered None recorded. Vitals Height Weight BMI Blood Pressure 5 ft 9 in 221 lbs 32.6 kg/m2 (1) 148/82 mm[Hg] (2) 138/80 mm[Hg] Results Lab Results Date Name Specimen Result Interpretation Description Value Range Status Address Glucose, Fingerstick, Blood Blood Glucose: mg/dl [address] [facility] [address] [facility] [address] Allergies Code Code System Name Reaction Severity Status Onset NKDA Problems Name Status Onset Date Source Urge Incontinence of Urine Active 06/30/2015 Lower Urinary Tract Symptoms Due to Benign Prostatic Hypertrophy Active 06/30/2015 Carpal Tunnel Syndrome Active 10/23/2017 Type 2 Diabetes Mellitus Active 10/25/2017 Mixed Hyperlipidemia Active 10/26/2017 Polymyalgia Active 03/26/2018 Diabetic on Insulin Active 11/21/2018 Retina-normal Active 02/07/2019 Procedures Date Name Performed by 03/20/2015 Carpal Tunnel Surgery Information not available 04/08/2019 XR, Foot, 3 or More View [facility] Radiology [address] [place] [address] (Work [address]) Vaccine List Vaccine Type influenza, high dose seasonal 01/04/20180.5 mL 11/21/20180.5 mL influenza, injectable, quadrivalent 06/30/2015 03/30/20160.5 mL Tdap 11/21/20180.5 mL Social History Tobacco Smoking Status Former Smoker (1 PPW) Past Encounters 04/08/2019 Type 2 Diabetes Mellitus; Diabetic on Insulin; Mixed Hyperlipidemia; Lower Urinary Tract Symptoms Due to Benign Prostatic Hypertrophy; Urge Incontinence of Urine; Noncompliance with Medication Regimen; Diabetic Foot Ulcer Marcial Live Jr, MD: [id number], [place] [address], Ph. History of Present Illness Hypertension Reported [...] Left Foot: no objective synovitis, no tenderness, erythema, warmth, pain on palpation Constitutional: Weight: well-nourished. Ambulation: [...]
--- OUTSIDE RECORDS SUMMARY | 2019-05-28 07:33 | XMS REPORT | Summary of Care ---
Author Author [facility] - Health Organization [facility] - Health Address Unknown Phone Unavailable Care Team Providers Care Supervisor Powdered Sugar Name Role Phone Pcp, Patient Does Not Have A PCP Reason for Referral * (TAMIKO) Referred By Contact Referred To Contact Status Reason Specialty Diagnoses / Procedures Ogunlana Mary Alice A, DPM [address] [place], [place] [phone] New Request Vascular Surgery Diagnoses Puncture wound of left foot, initial encounter P rocedures [facility] MULTI LEVEL BY VASCULAR LAB * MRI/CAT Scan (TAMIKO) Referred By Contact Referred To Contact Status Reason Specialty Diagnoses / Procedures Ogunlana, Mary Alice A, DPM [address] [place] [address] New Request Diagnostic Diagnoses Radiology Puncture wound of left foot, initial encounter P rocedures MR FOOT LEFT W WO CONTRAST * Radiology Services (Routine) Referred By Contact Referred To Contact Status Reason Specialty Diagnoses / Procedures Ogunlana, Mary Alice A, DPM [address] [place] [address] New Request Diagnostic Diagnoses Radiology Left foot pain P rocedures XR FOOT 3+ VW LEFT Reason for Visit * Reason Comments New Patient Left foot pain 5 Encounter Details Care Team Description Date Type Department Ogunlana, Mary Alice A, DPM [address] [place] [address] [phone] Puncture wound of left foot, initial encounter (Primary Dx); Left foot pain; Diabetes mellitus due to underlying condition with diabetic neuropathy, without long-term current use of insulin 04/23/2019 [facility] [address], [address] [place] [address] Allergies No Known Allergiesdocumented as of this [...] 106.6 kg (235 lb) 04/23/2019 12:48 PM [employer] [facility] Weight - - Height 34.7 04/11/2014 1:37 PM [facility] Body Mass Index documented in this encounter Progress Notes * Mary Alice Hawkins DPM - 04/23/2019 1:15 PM [facility] PCP PODIATRY CLINIC NOTE CC: Left foot [...] referred to outside Surgeon Dr. Live at [facility]. Patient states his wound has gotten worse [...] file. Past Surgical History: Procedure Laterality Date [place] LEG/ANKLE SURGERY PROC UNLISTED No family history [...] file Gets together: Not on file Attends denominational service: Not on file Active member of [...] ing. - Patient was given script to Pin Puller today in clinic for post op shoe. [...] assessment and plan. Mary Alice Hawkins DPM Mobile Disc Jockey Podiatry Department of Orthopaedic Surgery & Rehabiliation 04/23/19 2:36 PM TRA[employer]IC CONTR[employer] [facility] documented in this encounter Plan of Treatment Care Team Description Date Type Specialty Mary Alice Hawkins DPM [address] [place], [place] [phone] 04/23/2019 Appointment Radiology Mary Alice Hawkins DPM [address] [place] [address] 3, [facility] Vas Rm 04/24/2019 Appointment Vascular Sonography Mary Alice Hawkins DPM [address] [place] [address] 05/13/2019 Office Visit Orthopedic Surgery [...] FOOT 3+ VW LEFT (04/23/2019 12:58 PM [employer]) Specimen Impressions Performed At No acute bony [...] Results Inft User - 04/23/2019 1:24 PM [employer] [facility] EXAM: XR FOOT 3+ VW LEFT HISTORY: [...] Adv PPO AETNA - MANAGED MEDICARE AETNA [id number] 2017-P [address] MEDICARE resent [id number] [place] [address] documented as of this encounter"
[2019-05-28] MEDS: CEFAZOLIN SOD 1 GM/NS 50ML 100 ML IV ONE (08:43)
[2019-05-28] MEDS: FENTANYL CITRATE/PF 100MCG/2 ML INJ ONE (11:19)
[2019-05-28 11:25] VITALS: BP 118/90
--- NOTE | 2019-05-28 18:38 | Operative Report ---
DATE OF PROCEDURE: 05/28/2019 SURGEON: Barbara Burns DPM PREOPERATIVE DIAGNOSES: 1. Abscess, chronic left foot. 2. 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 POSTOPERATIVE DIAGNOSES: 1. Abscess, chronic left foot. 2. 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 PROCEDURE: Incision and drainage with deep cultures to the left foot. ANESTHESIA: General anesthetic. HEMOSTASIS: Pneumatic ankle tourniquet. ESTIMATED BLOOD LOSS: Less than 10 mL. MATERIALS: Human allograft after debridement of the chronic wound. COMPLICATIONS: None. CONDITION: Stable. PROCEDURE IN DETAIL: Under mild sedation, the patient was brought to the operating room, placed on the operating table in supine position. Following IV sedation, anesthesia was obtained with a general anesthetic. At this point, the left foot was scrubbed, prepped, and draped in usual aseptic manner. It was then lowered to the table. Attention was then directed to the plantar aspect of the left foot, where a linear incision was made overlying the area of the chronic wound. The incision was deepened down to the level of the fascia. At this point, there was noted to be a foreign body. A black piece of foreign body from the history, he has stepped on a piece of wood with various nails. It did not appear to be a piece of nail, appeared to be a piece of like either soft material or shoe. The foreign body was removed and it was sent for pathology. The area was then flushed with copious amount of normal sterile saline solution. The area was debrided down with the curette. All nonviable tissue was removed. It was then flushed with copious amount of irrigation with a pressure production hand. Cultures and sensitivity of the deep areas were taken. Once all nonviable tissue was removed down to clean viable tissue, human allograft was then inserted to promote healing to the area. The area was then closed partially with simple interrupted sutures with 4-0 nylon. Clean dressing was applied consisting of Xeroform, 4x4s, Kerlix, and an Roosevelt bandage. The tourniquet was deflated. There was noted to be hyperemic response to all the digits. The patient tolerated the procedure and anesthesia well without complications, was transferred to recovery room with vital signs stable and vascular status intact. The patient will be discharged home when he meets criteria. He was given instructions to be nonweightbearing, to ice and elevate the foot, follow up with me in the office, and to call the office if any questions, concerns, or new problems arise. SWAPNA Herman/JOSEPHINE /[id number]
== END | disposition home or self-care (01) ==
LOC: OR 07:27
PROVIDERS: ATTEND Podiatrist Foot & Ankle Surgery
DX: S90.852A Superficial foreign body, left foot, initial encounter (principal); L02.612 Cutaneous abscess of left foot; E11.621 Type 2 diabetes mellitus with foot ulcer; W22.8XXA Striking against or struck by other objects, initial encounter; I10 Essential (primary) hypertension; Z01.810 Encounter for preprocedural cardiovascular examination; Z01.818 Encounter for other preprocedural examination; Z79.84 Long term (current) use of oral hypoglycemic drugs
CPT/HCPCS: 28192; 36415; 71046; 82948; 87071; 87075; 87205; 88302; 93005; J0690; J2001; J2405; J2704; J3010; 88304; J2710